=== PATIENT | male | born 1955 | race Caucasian/White ===

== ENCOUNTER → 2023-11-03 09:04 | Outpatient (REF) | payer OTHER, SELFPAY ==
[2023-11-03 12:47] LABS: PSA, Total - Diagnostic 7.48 ng/ml (0.0-4.0)
== END ==
LOC: HWLAB 09:04
PROVIDERS: ATTENDING PHYSICIAN Surgery; FAMILY PHYSICIAN Internal Medicine
DX: R97.20 Elevated prostate specific antigen [PSA] (principal)
CPT/HCPCS: 36415; 84153

== ENCOUNTER → 2024-03-08 06:58 | Outpatient (REF) | payer OTHER, SELFPAY ==
[2024-03-08 12:06] LABS: ALT (SGPT) 21 U/L (0-50); AST (SGOT) 23 U/L (17-59); HDL Cholesterol 41 mg/dl; LDL Cholesterol, Calculated 117 mg/dl; Total Cholesterol 175 mg/dl (50-199); Triglyceride 89 mg/dl (10-149); Very Low Density Lipoprotein 17 mg/dl (0-30)
== END ==
LOC: HWLAB 06:58
PROVIDERS: ATTENDING PHYSICIAN Nurse Practitioner Gerontology; FAMILY PHYSICIAN Internal Medicine
DX: E78.5 Hyperlipidemia, unspecified (principal)
CPT/HCPCS: 36415; 80061; 84450; 84460

== ENCOUNTER → 2024-11-15 12:55 | Outpatient (REF) | payer OTHER, SELFPAY ==
[2024-11-15 16:47] LABS: PSA, Total - Diagnostic 7.81 ng/ml (0.0-4.0)
== END ==
LOC: HWLAB 12:55
PROVIDERS: ATTENDING PHYSICIAN Surgery; FAMILY PHYSICIAN Internal Medicine
DX: R97.20 Elevated prostate specific antigen [PSA] (principal)
CPT/HCPCS: 36415; 84153